=== PATIENT | female | born 1985 | race Hispanic/Latino ===

== ENCOUNTER 2019-08-12 11:49 | Emergency (ER) | payer SELFPAY ==
[~2019-08-12] VITALS: Ht 160 cm; Wt 56.0 kg
[~2019-08-12 11:49] MED LIST: CIPROFLOXACN500 MG PO; CORTISPORIN OTI10 ML AD; LORTAB5 PO; NO HOME MEDS; PREVPAC OR; PYRIDIUM200 MG PO
[2019-08-12 12:10] LABS: GFR > 60 ML/MIN (>=60 (CALC)); GFR FOR AFR.AMER. > 60 ML/MIN (>=60 (CALC))
[2019-08-12 12:11] LABS: HEMATOCRIT 31.5 % (37.0-47.0); HEMOGLOBIN 10.1 g/dl (12.0-16.0); IMMATURE GRANULOCYTES 0.6 % (0.0-5.0); MEAN CELL VOLUME 90.8 fL CALC (80.0-100.0); MEAN CORPUSCULAR HGB 29.1 pG CALC (26.0-32.0); MEAN CORPUSCULAR HGB CONC 32.1 g/L CALC (32.0-36.0); NEUT# 7.78 thou/uL (2.00-7.15); RED BLOOD COUNT 3.47 mill/uL (4.20-5.60); RED CELL DISTRI WIDTH 13.2 % (11.5-15.5)
[2019-08-12 12:22] LABS: ALBUMIN 3.4 g/dL (3.2-5.0); ANION GAP 11 (6-22 (CALC)); BILIRUBIN, TOTAL 0.8 mg/dL (0.0-1.4); BUN 11 mg/dL (7-17); BUN/CREATININE RATIO 24 (12-20 (CALC)); CARBON DIOXIDE 22 mmol/l (22-30); CHLORIDE 111 mmol/l (95-108); CREATININE 0.5 mg/dL (0.5-1.0); GFR > 60 ML/MIN (>=60 (CALC)); GFR FOR AFR.AMER. > 60 ML/MIN (>=60 (CALC)); LIPASE 29 u/l (23-300); POTASSIUM 3.9 mmol/l (3.5-5.1); SGOT/AST 30 u/l (14-36); SODIUM 139 mmol/l (137-146); TOTAL PROTEIN 6.3 g/dL (6.3-8.2)
[2019-08-12 12:34] LABS: ALKALINE PHOSPHATASE 79 u/l (38-126)
[2019-08-12 15:22] VITALS: BP 114/71
== END 2019-08-12 15:29 | disposition home or self-care (01) | DRG 563 ==
LOC: ED 11:49
PROVIDERS: Family Medicine
DX: S46.911A Strain of unspecified muscle, fascia and tendon at shoulder and upper arm level, right arm, initial encounter (principal); S40.021A Contusion of right upper arm, initial encounter; X58.XXXA Exposure to other specified factors, initial encounter; Y92.69 Other specified industrial and construction area as the place of occurrence of the external cause; Y99.0 Civilian activity done for income or pay

== ENCOUNTER 2019-08-14 14:37 | Emergency (ER) | payer OTHER ==
[~2019-08-14] VITALS: Ht 160 cm; Wt 56.0 kg
[2019-08-14] MEDS ORDERED: FLEXERIL5 MG PO (15:24)
[2019-08-14 15:40] VITALS: BP 141/83
== END 2019-08-14 15:40 | disposition home or self-care (01) | DRG 605 ==
LOC: ED 14:37
DX: S40.011A Contusion of right shoulder, initial encounter (principal); M25.511 Pain in right shoulder; S46.911A Strain of unspecified muscle, fascia and tendon at shoulder and upper arm level, right arm, initial encounter